=== PATIENT | female | born 1955 | race Caucasian/White ===

== ENCOUNTER 2019-12-28 10:02 | Outpatient (CLI) | payer MEDICARE, OTHER, SELFPAY ==
--- NOTE | 2019-12-28 10:12 | XR_ITS ---
WS: [id number] LEFT HAND: 3 VIEW(S) TECHNIQUE: PA, oblique and lateral. HISTORY: CONTRACTURE OF LEFT HAND COMPARISON: None available. No acute fracture or dislocation. Moderate interphalangeal joint space narrowing. Most significant changes in the third DIP joint. Mode rate osteoarthritis at the first carpometacarpal joint. There are several small rounded loose bodies adjacent to the first carpometacarpal joint. Progression of disease since 09/12/2014. No erosions. XR/XR hand LT min 3V* [id number] IMPRESSION: 1. Mildly severe osteoarthritis at the first carpometacarpal joint with progre ssion since 2014. 2. Mild osteoarthritis at the interphalangeal joints.
--- NOTE | 2019-12-28 10:12 | XR_ITS ---
WS: [id number] RIGHT HAND: 3 VIEW(S) TECHNIQUE: PA, oblique and lateral. HISTORY: OSTEOARTHRITIS COMPARISON: None available. No acute fracture or dislocation. Mild interphalangeal joint space narrowing. No erosions at the metacarpal heads. No soft tissue edema . Mild narrowing of the radiocarpal joint. XR/XR hand RT min 3V* [id number] IMPRESSION: Mild osteoarthritis RIGHT hand.
== END 2019-12-28 10:03 | disposition home or self-care (01) ==
LOC: RADWPI 10:10
PROVIDERS: Family Provider Family Medicine; PCP Family Medicine; Visit Provider Nurse Practitioner
DX: M19.041 Primary osteoarthritis, right hand (principal); M19.042 Primary osteoarthritis, left hand; M24.542 Contracture, left hand
CPT/HCPCS: 73130

== ENCOUNTER → 2020-02-09 09:03 | Outpatient (BNVA) | payer MEDICARE, OTHER, SELFPAY | PROVIDERS: Family Provider Family Medicine; PCP Family Medicine; Visit Provider Internal Medicine | DX: R76.8 Other specified abnormal immunological findings in serum (principal); M19.90 Unspecified osteoarthritis, unspecified site; M79.7 Fibromyalgia; M81.0 Age-related osteoporosis without current pathological fracture | CPT/HCPCS: 36415; 80053; 81003; 82306; 82550; 83735; 84100; 85025; 85651; 86038; 86140; 86160; 86431; 86812; 99203 ==

== ENCOUNTER → 2020-02-13 10:37 | Outpatient (BNVA) | payer MEDICARE, OTHER, SELFPAY | PROVIDERS: Family Provider Family Medicine; PCP Family Medicine; Visit Provider Internal Medicine | DX: R76.8 Other specified abnormal immunological findings in serum (principal); Z79.899 Other long term (current) drug therapy | CPT/HCPCS: 36415; 80053; 82306; 82550; 82553; 83735; 84100; 85025; 85651; 86038; 86140; 86160; 86431; 86812 ==

== ENCOUNTER → 2020-02-20 10:01 | Outpatient (BNVA) | payer MEDICARE, OTHER, SELFPAY | PROVIDERS: Family Provider Family Medicine; PCP Family Medicine; Visit Provider Internal Medicine | DX: R76.8 Other specified abnormal immunological findings in serum (principal); M19.90 Unspecified osteoarthritis, unspecified site; Z79.899 Other long term (current) drug therapy | CPT/HCPCS: 36415; 80048; 81003; 82550; 83516; 84100 ==

== ENCOUNTER → 2020-03-12 13:26 | Outpatient (BNVA) | payer MEDICARE, OTHER, SELFPAY | PROVIDERS: Family Provider Family Medicine; PCP Family Medicine; Visit Provider Internal Medicine | DX: M60.9 Myositis, unspecified (principal); R76.8 Other specified abnormal immunological findings in serum; M19.90 Unspecified osteoarthritis, unspecified site; R53.83 Other fatigue | CPT/HCPCS: 36415; 80053; 81001; 81003; 82550; 84100; 85025; 87077; 87086; 87186; 99214 ==

== ENCOUNTER → 2020-04-24 10:02 | Outpatient (BNVA) | payer MEDICARE, OTHER, SELFPAY | PROVIDERS: Family Provider Family Medicine; PCP Family Medicine; Visit Provider Internal Medicine | DX: M60.9 Myositis, unspecified (principal); R76.8 Other specified abnormal immunological findings in serum; Z79.899 Other long term (current) drug therapy | CPT/HCPCS: 36415; 80053; 81001; 82550; 84100; 85025; 85651; 86140; 87077; 87086; 87186; 99213 ==

== ENCOUNTER → 2020-09-04 08:39 | Outpatient (BNVA) | payer MEDICARE, OTHER, SELFPAY | PROVIDERS: PCP Family Medicine; Visit Provider Internal Medicine Rheumatology | DX: Z79.899 Other long term (current) drug therapy (principal) | CPT/HCPCS: 36415; 80053; 85025; 85651; 86140 ==

== ENCOUNTER → 2020-09-12 09:09 | Outpatient (BNVA) | payer MEDICARE, OTHER, SELFPAY | PROVIDERS: PCP Nurse Practitioner Family; Visit Provider Internal Medicine | DX: R76.8 Other specified abnormal immunological findings in serum (principal); M19.90 Unspecified osteoarthritis, unspecified site; M79.10 Myalgia, unspecified site; Z79.899 Other long term (current) drug therapy | CPT/HCPCS: 99214 ==

== ENCOUNTER → 2020-10-21 11:28 | Outpatient (BNVA) | payer MEDICARE, OTHER, SELFPAY | PROVIDERS: PCP Nurse Practitioner Family; Visit Provider Internal Medicine | DX: R76.8 Other specified abnormal immunological findings in serum (principal); M79.10 Myalgia, unspecified site; M19.90 Unspecified osteoarthritis, unspecified site; M70.60 Trochanteric bursitis, unspecified hip; Y93.9 Activity, unspecified | CPT/HCPCS: 80053; 81003; 82550; 84100; 85025; 99214 ==

== ENCOUNTER → 2020-11-27 10:02 | Outpatient (BNVA) | payer MEDICARE, OTHER, SELFPAY | PROVIDERS: PCP Nurse Practitioner Family; Visit Provider Surgery | DX: Z20.822 Contact with and (suspected) exposure to COVID-19 (principal); M79.10 Myalgia, unspecified site | CPT/HCPCS: 87635 ==

== ENCOUNTER 2020-12-02 06:05 | Day surgery (SDC) | payer MEDICARE, OTHER, SELFPAY ==
[2020-11-29 14:08] VITALS: BMI 36.8
[2020-12-02 06:24] VITALS: BP 135/87; PULSE 75; RESP 18; TEMP 36.6; O2SAT 97
[2020-12-02] MEDS: sodium chloride 0.9% 1,000 ML 30 ML IV (07:00)
--- NOTE | 2020-12-02 07:03 | W.PM.OPSFHP ---
Same Day Surgery H&P Indication for Procedure/HPI DATE OF PROCEDURE: December 02, 2020 CHIEF COMPLAINT/INDICATIONFOR SURGICAL PROCEDURE: Right thigh muscle biopsy/colonoscopy PREOP DIAGNOSIS: Myositis, screening colonoscopy PLANNED PROCEDRUE: Operation Date: 12/02/20 07:50 Proposed Procedures p Muscle Biopsy M79.10(Not Applicable) - Reilly Hernandez MD s Colonoscopy 02133 Z12.11(Not Applicable) - Reilly Hernandez MD Medications/Allergies* Home Medications Medication Instructions Recorded Confirmed Type azelastine 137 mcg (0.1 %) nasal 1 spray INTRANASAL BID 02/08/20 12/02/20 History spray aerosol fluticasone 250 mcg-salmeterol 50 1 inh INHALATION BID 02/08/20 12/02/20 History mcg/dose blistr powdr for inhalation lorazepam 0.5 mg tablet 0.5 mg PO DAILY PRN 02/08/20 12/02/20 History pregabalin 300 mg capsule 300 mg PO DAILY 02/08/20 12/02/20 History trazodone 150 mg tablet 150 mg PO DAILY 02/08/20 12/02/20 History atenolol 25 mg tablet 25 mg PO DAILY 02/09/20 12/02/20 History aspirin 81 mg chewable tablet 81 mg PO DAILY 09/12/20 12/02/20 History levocetirizine 5 mg tablet 5 mg PO DAILY 09/12/20 11/29/20 History loratadine [Claritin] 10 mg PO DAILY PRN 12/02/20 12/02/20 History Allergies/Adverse Reactions Allergy/AdvReac Type Severity Reaction Status Date / Time adhesive tape Allergy itching Verified 11/29/20 14:07 Pertinent History/Comorbid Conditions* Medical History (Updated 09/12/20 @ 09:46 by Sue Blake MD) Anxiety Fibromyalgia Hypertension Myositis Osteoarthritis Osteoporosis Surgical History (Updated 05/17/20 @ 09:34 by Reilly Hernandez MD) H/O total hip arthroplasty Family History (Updated 02/09/20 @ 09:34 by Dorothy Washington LPN) Hypertension Denies family history of Rheumatoid arthritis Lupus CAD (coronary artery disease) Cancer Social History Smoking and tobacco status: never smoked Alcohol intake: never Lives independently: Yes Marital status: Current occupational status: retired History of recent travel: No Pertinent Exam Findings alert, oriented x 3, regular rate & rhythm and operative site marked Recommendations Surgery/Procedure today Coding Level of Care Code Acute Notch Grinder for Sarita Anguiano
--- NOTE | 2020-12-02 07:15 | ANES.PREANE2 ---
Pre-Anesthetic Assessment Pre-Anesthetic Assessment: Height/Weight: Height 1.7 m Weight 106.594 kg Temp Pulse Resp BP Pulse Ox 98 F 75 18 135/87 97 12/02/20 06:24 12/02/20 06:24 12/02/20 06:24 12/02/20 06:24 12/02/20 06:24 Preop Diagnosis: Myositis, screening colonoscopy Proposed Procedure: Operation Date: 12/02/20 07:50 Proposed Procedures p Muscle Biopsy M79.10(Not Applicable) - Reilly Hernandez MD s Colonoscopy 94697 Z12.11(Not Applicable) - Reilly Hernandez MD Was Beta Jessie taken within 24 hours: Yes Was Clonidine taken within 24 hours: N/A Last intake: Intake Last Liquid Date 12/01/20 Last Solid Date 12/01/20 Social: Social History: No alcohol and No tobacco Exam: Pre-Anes Outpt Exam: alert, oriented x 3, clear to auscultation bilaterally and regular rate & rhythm Airway: Submandibular: WNL Cervical ROM: WNL MP: 2 Pulmonary: Pulmonary: None reported CV/HEM: CV/HEM: HTN : : None reported Hepatic: Hepatic: None reported GI: GI: None reported Metabolic: Metabolic: None reported Musc/skel: Musc/skel: None reported Neuropsych: Neuropsych: Anxiety and Depression Anesthetic Plan: ASA status: 2 Anesthesia: MAC PFSH Anesthesia PFSH: Medical History Anxiety Fibromyalgia Hypertension Myositis Osteoarthritis Osteoporosis Surgical History H/O total hip arthroplasty Family History Other Hypertension Denies family history of Rheumatoid arthritis Lupus CAD (coronary artery disease) Cancer Social History Smoking and tobacco status: never smoked Alcohol intake: never Lives independently: Yes Marital status: Current occupational status: retired History of recent travel: No Data Anesthesia Cardiac Studies: No Data to Display
[2020-12-02 09:34] VITALS: BP 98/69; PULSE 73; RESP 12; TEMP 36.2; O2SAT 94
[2020-12-02] MEDS: ondansetron 2 mg/ML SDV 2 mL 4 MG IVP ×2 (09:36→09:41)
--- NOTE | 2020-12-02 09:39 | P.PCN_ITS ---
PACU note PACU note: VSS, Good respiratory effort, report to DEBURR TECHNICIAN Post-Anesthesia Exam: awake
--- NOTE | 2020-12-02 09:39 | PM.PACU ---
PACU note PACU note: VSS, Good respiratory effort, report to RECREATION FACILITY ATTENDANT Post-Anesthesia Exam: awake
[2020-12-02 09:40] VITALS: BP 103/73; PULSE 69; RESP 14; O2SAT 94
--- NOTE | 2020-12-02 09:40 | ANE.PACU2 ---
Inpatient post-anesthesia follow up: Airway intact: Yes Vital signs: Temperature 98 F Pulse Rate 75 Respiratory Rate 18 Blood Pressure 135/87 Pulse Oximetry 97 Oxygen Delivery Me thod Room Air Oxygen Flow Rate Fraction of Inspir ed Oxygen Hydration adequate: Yes Nausea and vomiting: No Pain level: 1 Mental status: Baseline
[2020-12-02 09:45] VITALS: BP 103/75; PULSE 77; RESP 16; TEMP 36.4; O2SAT 95
[2020-12-02 09:48] VITALS: BP 99/71; PULSE 65; RESP 16; TEMP 36.1; O2SAT 94
[2020-12-02] MEDS: HYDROcodone-acetaminophen 5-325 mg Tablet 1 TAB PO (10:24)
[2020-12-02 10:26] VITALS: BP 100/68; PULSE 55; RESP 16; O2SAT 95
--- NOTE | 2020-12-02 14:08 | PM.OP ---
Operative Report Date of procedure: December 02, 2020 Pre-op Diagnosis: Myositis, screening colonoscopy Post-op Diagnosis: 1. 3mm sessile cecal polyp 2. 3mm sessile descending colon polyp 3. Diverticulosis 4. Myositis Procedure Done: 1. Colonoscopy with polypectomy using cold biopsy forceps 2. Right rectus femoris muscle biopsy Specimens removed/disposition: 1. Recovery over the weekend right thigh rectus femoris - muscle biopsy 2. Cecal polyp 3. Descending colon polyp Surgeon: Reilly Hernandez Anesthesia: General Condition: stable Disposition: PACU Procedure: The patient is in the operating room and placed in the left lateral position under MAC after IV antibiotic had been administered. A colonoscopy was introduced and advanced to the cecum and slowly withdrawn. The colon prep was fair. Cecum: 3 mm sessile polyp removed with cold biopsy forceps Ascending colon: Normal Transverse colon: Normal Descending colon: 5 mm sessile polyp removed with cold biopsy forceps Sigmoid colon: Mild sigmoid diverticulosis Rectum:: Normal KEI:: Normal The right thigh was prepped and draped in a sterile manner. 1% lidocaine with 0.5% Marcaine was infiltrated into the skin and subcutaneous tissue. Using a 15 blade 3 cm incision was made, subcutaneous tissue was divided with electrocautery, the muscular fascia was divided and the rectus femoris muscle was identified. Using Metzenbaum scissors, 3 segments of 2 x 1 cm segment was excised and sent to pathology. Wound was irrigated with saline, hemostasis ensured and muscular fascia was closed using [id number] 0 Vicryl suture and subcutaneous tissue approximated using 3-0 Vicryl suture and skin was closed with running subcuticular 4-0 Monocryl suture and surgical glue. The patient was transferred to recovery room in stable condition.
== END 2020-12-02 10:54 | disposition home or self-care (01) ==
PROVIDERS: PCP Nurse Practitioner Family; Visit Provider Surgery
PROC: (CPT 20205; principal; 2020-12-02 07:50)
PROC: 0DJD8ZZ Inspection of Lower Intestinal Tract, Via Natural or Artificial Opening Endoscopic (ICD-10-PCS; CPT 45378; 2020-12-02 07:50)
DX: Z12.11 Encounter for screening for malignant neoplasm of colon (principal); M60.9 Myositis, unspecified; D12.0 Benign neoplasm of cecum; D12.4 Benign neoplasm of descending colon; K57.30 Diverticulosis of large intestine without perforation or abscess without bleeding; I10 Essential (primary) hypertension; M19.90 Unspecified osteoarthritis, unspecified site; M81.0 Age-related osteoporosis without current pathological fracture; Z82.49 Family history of ischemic heart disease and other diseases of the circulatory system; M79.7 Fibromyalgia
CPT/HCPCS: 20205; 45380; 88300; 88305; J0690; J2405; J2704; J3010; J3490; J7030

== ENCOUNTER 2020-12-17 13:19 | Outpatient (CLI) | payer MEDICARE, OTHER, SELFPAY ==
--- NOTE | 2020-12-17 13:22 | USCV_ITS ---
Jesu Janey Age: 65 Gender: F : 1955 Exam Date: 12/17/2020 14:21 Ordering Phys: Amna Weaver NP Technologist: Kenyatta Boykin [place] [facility] [place]ication: ESSENTIAL HTN BP: 140 / 90 HR: 61 Rhythm: Sinus Technical Quality: Adequate MEASUREMENTS (Male / Female) Normal Values 2D ECHO LV Diastolic Diameter PLAX 4.4 cm 4.2 - 5.9 / 3.9 - 5.3 cm LV Systolic Diameter PLAX 3.2 cm LV Chamber Size 4.2 cm IVS Diastolic Thickness 1.3 cm 0.6 - 1.0 / 0.6 - 0.9 cm IVS Systolic Thickness 1.3 cm LVPW Diastolic Thickness 1.1 cm 0.6 - 1.0 / 0.6 - 0.9 cm LVPW Systolic Thickness 1.7 cm RV Chamber Size 2.7 cm LVOT Diameter 2.2 cm LV Ejection Fraction 2D Teich 53.2 % LV Ejection Fraction MOD 2C 56.7 % LV Ejection Fraction 2C AL 57.4 % LA Diameter 2.8 cm LA Width 2.0 cm LA Height 3.6 cm RA Width 3.1 cm RA Height 4.3 cm Aorta at Sinotubular Diameter 3.1 cm M-MODE LV Diastolic Diameter MM 4.7 cm 4.2 - 5.9 / 3.9 - 5.3 cm LV Systolic Diameter MM 3.0 cm LV Ejection Fraction MM Teich 66.2 % IVS Diastolic Thickness MM 0.9 cm 0.6 - 1.0 / 0.6 - 0.9 cm IVS Systolic Thickness MM 2.1 cm LVPW Diastolic Thickness MM 1.7 cm 0.6 - 1.0 / 0.6 - 0.9 cm LVPW Systolic Thickness MM 1.7 cm Aortic Annulus Diameter 3.3 cm LA Ao Ratio MM 0.9 MV E Point Septal Separation 0.6 cm DOPPLER AV Peak Velocity 117.0 cm/s LVOT Peak Velocity 75.0 cm/s AV Area Cont Eq vti 2.5 cm squared AV Area Cont Eq pk 2.4 cm squared MV Area PHT 4.1 cm squared Mitral E to A Ratio 1.1 MV E' Velocity 38.0 cm/s Mitral E to MV E' Ratio 7.7 Mitral E to LV E' Lateral Ratio 7.2 Mitral E to LV E' Septal Ratio 8.2 TR Peak Velocity 230.2 cm/s TR Peak Gradient 21.2 mmHg TR Mean Velocity 177.3 cm/s TR Mean Gradient 13.6 mmHg TR Velocity Time Integral 64.5 cm TV Peak E Velocity 64.0 cm/s Right Atrial Pressure 3.0 mmHg Pulmonary Artery Systolic Pressu 24.2 mmHg PV Peak Velocity 54.0 cm/s RV Acceleration Time 0.1 s RV Ejection Time 0.4 s RV AcT/ET 0.3 FINDINGS Left Ventricle Normal left ventricular size. LV systolic function is normal with EF of 50-55%. No regional wall motion abnormalities. Normal diastolic filling pattern. Right Ventricle The right ventricle is normal in size and function. Right Atrium The right atrium is normal in size. Left Atrium The left atrium is normal in size. Mitral Valve Structurally normal mitral valve without significant stenosis or prolapse. There is mild mitral regurgitation. Aortic Valve Structurally normal aortic valve without significant sclerosis or stenosis. There is no aortic regurgitation. Tricuspid Valve Structurally normal tricuspid valve without significant stenosis. Trace tricuspid regurgitation. RVSP is 10-15mmHg Pulmonic Valve Structurally normal pulmonic valve without significant stenosis. There is no pulmonic regurgitation. Pericardium Normal pericardium without effusion. Aorta Normal ascending aorta dimension. CONCLUSIONS LV systolic function is normal with EF of 50-55% Diastolic function is normal Mild mitral regurgitation. Trace tricuspid regurgitation No comparison studies are available Ken Meade MD (Electronically Signed) Final Date: 26 Dec 2020 10:19 S
== END 2020-12-17 13:20 | disposition home or self-care (01) ==
LOC: RAD 13:21
PROVIDERS: PCP Nurse Practitioner Family; Visit Provider Nurse Practitioner Family
DX: Z01.818 Encounter for other preprocedural examination (principal); I10 Essential (primary) hypertension; I34.0 Nonrheumatic mitral (valve) insufficiency; I07.1 Rheumatic tricuspid insufficiency
CPT/HCPCS: 93306

== ENCOUNTER → 2021-01-09 10:48 | Outpatient (BNVA) | payer MEDICARE, OTHER, SELFPAY | PROVIDERS: PCP Nurse Practitioner Family; Visit Provider Internal Medicine | DX: M60.9 Myositis, unspecified (principal); M19.90 Unspecified osteoarthritis, unspecified site; Z11.59 Encounter for screening for other viral diseases; Z11.1 Encounter for screening for respiratory tuberculosis | CPT/HCPCS: 36415; 86704; 87340; 99214 ==

== ENCOUNTER → 2021-04-10 08:32 | Outpatient (BNVA) | payer MEDICARE, OTHER, SELFPAY | PROVIDERS: PCP Nurse Practitioner Family; Visit Provider Internal Medicine | DX: M60.9 Myositis, unspecified (principal); R76.8 Other specified abnormal immunological findings in serum; Z79.899 Other long term (current) drug therapy; M19.90 Unspecified osteoarthritis, unspecified site; Z11.59 Encounter for screening for other viral diseases; Z11.1 Encounter for screening for respiratory tuberculosis | CPT/HCPCS: 36415; 80053; 82657; 84100; 85025; 85651; 86140; 86480; 86803; 99214 ==

== ENCOUNTER → 2021-06-17 11:01 | Outpatient (BNVA) | payer MEDICARE, OTHER, SELFPAY | PROVIDERS: PCP Nurse Practitioner Family; Visit Provider Internal Medicine | DX: M60.9 Myositis, unspecified (principal); Z79.899 Other long term (current) drug therapy; M81.0 Age-related osteoporosis without current pathological fracture; M19.90 Unspecified osteoarthritis, unspecified site; R76.8 Other specified abnormal immunological findings in serum; M79.7 Fibromyalgia | CPT/HCPCS: 36415; 80053; 82550; 85025; 85651; 86140 ==

== ENCOUNTER → 2021-06-18 16:47 | Outpatient (BNVA) | payer MEDICARE, OTHER, SELFPAY | PROVIDERS: PCP Nurse Practitioner Family; Visit Provider Internal Medicine | DX: M60.9 Myositis, unspecified (principal); Z79.899 Other long term (current) drug therapy; M81.0 Age-related osteoporosis without current pathological fracture; R76.8 Other specified abnormal immunological findings in serum; M19.90 Unspecified osteoarthritis, unspecified site; M79.10 Myalgia, unspecified site; M79.7 Fibromyalgia | CPT/HCPCS: 80053; 82550; 82553; 85025; 85651; 86140 ==

== ENCOUNTER → 2021-09-03 09:43 | Outpatient (BNVA) | payer MEDICARE, OTHER, SELFPAY | PROVIDERS: PCP Nurse Practitioner Family; Visit Provider Internal Medicine | DX: R76.8 Other specified abnormal immunological findings in serum (principal); M60.9 Myositis, unspecified; Z79.899 Other long term (current) drug therapy | CPT/HCPCS: 99214 ==

== ENCOUNTER 2021-09-04 09:09 | Outpatient (CLI) | payer MEDICARE, OTHER, SELFPAY ==
[2021-09-04 09:44] LABS: Basophils % 0.5 %; Eosinophils # 0.2 10^3/uL (0.0-0.8); Eosinophils % 4.5 %; Hematocrit 38.1 % (37.0-47.0); Hemoglobin 12.5 g/dL (11.5-15.3); Lymphocytes # 1.6 10^3/uL (0.8-4.8); Lymphocytes % 35.6 %; Mean Corpuscular HGB Conc 32.8 g/dL (30.0-36.0); Mean Corpuscular Hemoglobin 28.6 pg (28.0-34.0); Mean Corpuscular Volume 87.2 fl (81-99); Mean Platelet Volume 10.5 fL (7.4-10.4); Monocytes # 0.3 10^3/uL (0.2-0.9); Monocytes % 7.7 %; Neutrophils # 2.29 10^3/uL (1.8-7.7); Neutrophils % 51.5 %; Nucleated Red Blood Cells % 0 %; Platelet Count 185 10^3/cmm (130-400); Red Blood Count 4.37 10^6/uL (4.1-5.3); Red Cell Distribution Width 14.5 % (12.1-15.1); White Blood Count 4.4 10^3/uL (4.0-10.0)
[2021-09-04 09:56] LABS: Erythrocyte Sedimentation Rate 5 mm/hr (0-15)
[2021-09-04 10:09] LABS: Alanine Aminotransferase 15 U/L (0-33); Albumin Level 4.1 g/dL (3.5-5.2); Alkaline Phosphatase 84 IU/L (35-105); Anion Gap 18.7 (5-19); Aspartate Amino Transferase 26 U/L (0-32); Blood Urea Nitrogen 16 mg/dL (8-23); Calcium 8.6 mg/dL (8.5-10.5); Carbon Dioxide 23 mmol/L (22-29); Chloride 99 mmol/L (98-107); Creatine Phosphokinase 294 U/L (26-192); Globulin 2.1 g/dL (1.3-4.6); Glomerular Filtration Rate 62.3 mL/min (90-130); Glucose 80 mg/dL (65-115); Osmolality Calculated 282 mOsm/kg (285-295); Potassium 4.7 mmol/L (3.5-5.1); Sodium 136 mmol/L (136-145); Total Bilirubin 0.5 mg/dL (0.15-1.2); Total Protein 6.2 g/dL (6.6-8.7)
[2021-09-04 11:02] LABS: CKMB 4.9 ng/mL (0-5.34)
== END 2021-09-04 09:10 | disposition home or self-care (01) ==
LOC: LAB 09:14
PROVIDERS: PCP Nurse Practitioner Family; Visit Provider Internal Medicine
DX: M60.9 Myositis, unspecified (principal); R76.8 Other specified abnormal immunological findings in serum
CPT/HCPCS: 36415; 80053; 82550; 82553; 82657; 85025; 85651; 86140

== ENCOUNTER → 2021-10-01 09:25 | Outpatient (BNVA) | payer MEDICARE, OTHER, SELFPAY | PROVIDERS: PCP Nurse Practitioner Family; Visit Provider Internal Medicine | DX: M60.9 Myositis, unspecified (principal); R76.8 Other specified abnormal immunological findings in serum; M19.90 Unspecified osteoarthritis, unspecified site | CPT/HCPCS: 99214 ==

== ENCOUNTER 2022-01-01 08:31 | Outpatient (CLI) | payer MEDICARE, OTHER, SELFPAY ==
[2022-01-01 09:24] LABS: Basophils % 0.7 %; Eosinophils % 0.2 %; Hematocrit 39.3 % (37.0-47.0); Lymphocytes # 1.2 10^3/uL (0.8-4.8); Lymphocytes % 28.3 %; Mean Corpuscular HGB Conc 33.1 g/dL (30.0-36.0); Mean Corpuscular Hemoglobin 28.8 pg (28.0-34.0); Mean Corpuscular Volume 86.9 fl (81-99); Monocytes # 0.4 10^3/uL (0.2-0.9); Monocytes % 8.4 %; Neutrophils # 2.66 10^3/uL (1.8-7.7); Neutrophils % 62.2 %; Nucleated Red Blood Cells % 0 %; Platelet Count 225 10^3/cmm (130-400); Red Blood Count 4.52 10^6/uL (4.1-5.3); Red Cell Distribution Width 14.5 % (12.1-15.1); White Blood Count 4.3 10^3/uL (4.0-10.0)
[2022-01-01 09:38] LABS: Alanine Aminotransferase 31 U/L (0-33); Albumin Level 4.4 g/dL (3.5-5.2); Alkaline Phosphatase 78 IU/L (35-105); Aspartate Amino Transferase 42 U/L (0-32); Blood Urea Nitrogen 22 mg/dL (8-23); Calcium 9.4 mg/dL (8.5-10.5); Carbon Dioxide 26 mmol/L (22-29); Chloride 91 mmol/L (98-107); Globulin 2.5 g/dL (1.3-4.6); Glomerular Filtration Rate 62.3 mL/min (90-130); Glucose 95 mg/dL (65-115); Osmolality Calculated 265 mOsm/kg (285-295); Sodium 126 mmol/L (136-145); Total Bilirubin 0.4 mg/dL (0.15-1.2); Total Protein 6.9 g/dL (6.6-8.7)
[2022-01-01 09:39] LABS: Anion Gap 13.8 (5-19); Potassium 4.8 mmol/L (3.5-5.1)
[2022-01-01 09:40] LABS: Creatine Phosphokinase 294 U/L (26-192)
[2022-01-01 09:52] LABS: Erythrocyte Sedimentation Rate 7 mm/hr (0-15)
== END 2022-01-01 08:32 | disposition home or self-care (01) ==
LOC: LAB 08:35
PROVIDERS: PCP Nurse Practitioner Family; Visit Provider Internal Medicine
DX: M60.9 Myositis, unspecified; M19.90 Unspecified osteoarthritis, unspecified site; R76.8 Other specified abnormal immunological findings in serum; Z79.899 Other long term (current) drug therapy
CPT/HCPCS: 80053; 82550; 85025; 85651; 86140; 99214

== ENCOUNTER 2022-04-03 09:45 | Outpatient (CLI) | payer MEDICARE, OTHER, SELFPAY ==
[2022-04-03 10:51] LABS: Basophils % 0.7 %; Eosinophils # 0.1 10^3/uL (0.0-0.8); Eosinophils % 2.5 %; Hematocrit 38.7 % (37.0-47.0); Hemoglobin 12.8 g/dL (11.5-15.3); Lymphocytes # 1.7 10^3/uL (0.8-4.8); Lymphocytes % 29.7 %; Mean Corpuscular HGB Conc 33.1 g/dL (30.0-36.0); Mean Corpuscular Hemoglobin 29.7 pg (28.0-34.0); Mean Corpuscular Volume 89.8 fl (81-99); Mean Platelet Volume 10.3 fL (7.4-10.4); Monocytes # 0.5 10^3/uL (0.2-0.9); Monocytes % 8.8 %; Neutrophils # 3.22 10^3/uL (1.8-7.7); Neutrophils % 57.8 %; Nucleated Red Blood Cells % 0 %; Platelet Count 205 10^3/cmm (130-400); Red Blood Count 4.31 10^6/uL (4.1-5.3); Red Cell Distribution Width 14.5 % (12.1-15.1); White Blood Count 5.6 10^3/uL (4.0-10.0)
[2022-04-03 10:52] LABS: Erythrocyte Sedimentation Rate 6 mm/hr (0-15)
[2022-04-03 11:19] LABS: Alanine Aminotransferase 24 U/L (0-33); Albumin Level 4.3 g/dL (3.5-5.2); Alkaline Phosphatase 74 IU/L (35-105); Anion Gap 13.6 (5-19); Aspartate Amino Transferase 32 U/L (0-32); Blood Urea Nitrogen 23 mg/dL (8-23); Calcium 9.3 mg/dL (8.5-10.5); Carbon Dioxide 27 mmol/L (22-29); Chloride 95 mmol/L (98-107); Creatine Phosphokinase 229 U/L (26-192); Globulin 2.2 g/dL (1.3-4.6); Glomerular Filtration Rate 71.1 mL/min (90-130); Glucose 83 mg/dL (65-115); Osmolality Calculated 275 mOsm/kg (285-295); Potassium 4.6 mmol/L (3.5-5.1); Sodium 131 mmol/L (136-145); Total Bilirubin 0.4 mg/dL (0.15-1.2); Total Protein 6.5 g/dL (6.6-8.7)
== END 2022-04-03 09:46 | disposition home or self-care (01) ==
LOC: LAB 09:48
PROVIDERS: PCP Nurse Practitioner Family; Visit Provider Internal Medicine
DX: M60.9 Myositis, unspecified (principal); R76.8 Other specified abnormal immunological findings in serum; M19.90 Unspecified osteoarthritis, unspecified site; Z79.899 Other long term (current) drug therapy
CPT/HCPCS: 36415; 80053; 82550; 85025; 85651; 86140; 99213; 99214

== ENCOUNTER 2022-12-01 09:27 | Outpatient (CLI) | payer MEDICARE, OTHER, SELFPAY ==
[2022-12-01 10:23] LABS: Basophils % 0.6 %; Eosinophils # 0.2 10^3/uL (0.0-0.8); Eosinophils % 3.7 %; Hematocrit 37.8 % (37.0-47.0); Hemoglobin 11.9 g/dL (11.5-15.3); Lymphocytes # 1.8 10^3/uL (0.8-4.8); Lymphocytes % 27.5 %; Mean Corpuscular HGB Conc 31.5 g/dL (30.0-36.0); Mean Corpuscular Hemoglobin 27.9 pg (28.0-34.0); Mean Corpuscular Volume 88.7 fl (81-99); Mean Platelet Volume 10.2 fL (7.4-10.4); Monocytes # 0.4 10^3/uL (0.2-0.9); Monocytes % 6.6 %; Neutrophils # 3.98 10^3/uL (1.8-7.7); Neutrophils % 61.1 %; Nucleated Red Blood Cells % 0 %; Platelet Count 195 10^3/cmm (130-400); Red Blood Count 4.26 10^6/uL (4.1-5.3); Red Cell Distribution Width 13.7 % (12.1-15.1); White Blood Count 6.5 10^3/uL (4.0-10.0)
[2022-12-01 10:49] LABS: Alanine Aminotransferase 33 U/L (0-33); Alkaline Phosphatase 92 U/L (35-105); Anion Gap 12.8 (5-19); Aspartate Amino Transferase 40 U/L (0-32); Blood Urea Nitrogen 18 mg/dL (8-23); Calcium 8.6 mg/dL (8.5-10.5); Carbon Dioxide 28 mmol/L (22-29); Chloride 104 mmol/L (98-107); Globulin 2.3 g/dL (1.3-4.6); Glomerular Filtration Rate 71.1 mL/min (90-130); Glucose 89 mg/dL (65-115); Osmolality Calculated 291 mOsm/kg (285-295); Potassium 4.8 mmol/L (3.5-5.1); Sodium 140 mmol/L (136-145); Total Bilirubin 0.3 mg/dL (0.15-1.2); Total Protein 6.3 g/dL (6.6-8.7)
[2022-12-01 14:26] LABS: Erythrocyte Sedimentation Rate 6 mm/hr (0-15)
== END 2022-12-01 09:28 | disposition home or self-care (01) ==
LOC: LAB 09:34
PROVIDERS: PCP Nurse Practitioner Family; Visit Provider Internal Medicine
DX: M19.90 Unspecified osteoarthritis, unspecified site (principal); R76.8 Other specified abnormal immunological findings in serum
CPT/HCPCS: 36415; 80053; 85025; 85651; 86140

== ENCOUNTER → 2022-12-03 14:53 | Outpatient (BNVA) | payer MEDICARE, OTHER, SELFPAY | PROVIDERS: PCP Nurse Practitioner Family; Visit Provider Internal Medicine | DX: M60.9 Myositis, unspecified (principal); M19.90 Unspecified osteoarthritis, unspecified site; R76.8 Other specified abnormal immunological findings in serum | CPT/HCPCS: 99214 ==

== ENCOUNTER 2023-04-09 08:26 | Outpatient (CLI) | payer MEDICARE, OTHER, SELFPAY ==
[2023-04-09 09:20] LABS: Creatine Phosphokinase 261 U/L (26-192)
== END 2023-04-09 08:27 | disposition home or self-care (01) ==
PROVIDERS: PCP Nurse Practitioner Family; Visit Provider Internal Medicine
DX: M60.9 Myositis, unspecified (principal); M19.90 Unspecified osteoarthritis, unspecified site; R76.8 Other specified abnormal immunological findings in serum; R21 Rash and other nonspecific skin eruption
CPT/HCPCS: 36415; 82550; 99214

== ENCOUNTER 2023-07-13 13:15 | Outpatient (CLI) | payer MEDICARE, OTHER, SELFPAY ==
[2023-07-13 13:45] LABS: Basophils % 0.7 %; Eosinophils # 0.3 10^3/uL (0.0-0.8); Eosinophils % 4.7 %; Lymphocytes # 2.1 10^3/uL (0.8-4.8); Lymphocytes % 35.8 %; Mean Corpuscular HGB Conc 32.3 g/dL (30-55); Mean Corpuscular Hemoglobin 29.9 pg (27-33); Mean Corpuscular Volume 92.4 fl (85-98); Mean Platelet Volume 10.4 fL (7.4-10.4); Monocytes # 0.4 10^3/uL (0.2-0.9); Monocytes % 6.7 %; Neutrophils # 3.09 10^3/uL (1.8-7.7); Neutrophils % 51.9 %; Nucleated Red Blood Cells % 0 %; Platelet Count 183 10^3/cmm (157-399); Red Blood Count 4.22 10^6/uL (3.85-5.65); Red Cell Distribution Width 14.1 % (12.1-15.1); White Blood Count 5.95 10^3/uL (3.29-11.43)
[2023-07-13 14:20] LABS: Alanine Aminotransferase 30 U/L (0-33); Albumin Level 4.4 g/dL (3.5-5.2); Alkaline Phosphatase 89 U/L (35-105); Anion Gap 14.4 (5-19); Aspartate Amino Transferase 36 U/L (0-32); Blood Urea Nitrogen 14 mg/dL (8-23); Calcium 9.4 mg/dL (8.5-10.5); Carbon Dioxide 28 mmol/L (22-29); Chloride 103 mmol/L (98-107); Creatine Phosphokinase 296 U/L (26-192); Free T4 Free Thyroxine 1.15 ng/dL (0.82-1.77); Globulin 2.3 g/dL (1.3-4.6); Glomerular Filtration Rate 54.8 mL/min (90-130); Glucose 92 mg/dL (65-115); Osmolality Calculated 292 mOsm/kg (285-295); Phosphorus 3.2 mg/dL (2.5-4.5); Potassium 4.4 mmol/L (3.5-5.1); Sodium 141 mmol/L (136-145); Thyroid Stimulating Hormone 2.28 uIU/mL (0.27-4.20); Total Bilirubin 0.4 mg/dL (0.15-1.2); Total Protein 6.7 g/dL (6.6-8.7)
== END 2023-07-13 13:16 | disposition home or self-care (01) ==
PROVIDERS: PCP Nurse Practitioner Family; Visit Provider Internal Medicine
DX: M60.9 Myositis, unspecified (principal)
CPT/HCPCS: 36415; 80053; 82550; 84100; 84439; 84443; 85025

== ENCOUNTER → 2023-08-04 13:10 | Outpatient (BNVA) | payer MEDICARE, OTHER, SELFPAY | PROVIDERS: PCP Nurse Practitioner Family; Visit Provider Internal Medicine | DX: M60.9 Myositis, unspecified (principal); R76.8 Other specified abnormal immunological findings in serum; M19.90 Unspecified osteoarthritis, unspecified site; R21 Rash and other nonspecific skin eruption | CPT/HCPCS: 99214 ==

== ENCOUNTER 2023-08-19 08:33 | Outpatient (CLI) | payer MEDICARE, OTHER, SELFPAY ==
--- NOTE | 2023-08-19 08:46 | XRR_ITS ---
PROCEDURE INFORMATION: Exam: XR Chest Exam date and time: 08/19/2023 8:48 AM Age: 68 years old Clinical indication: Other: Low back pain; Prior surgery; Surgery date: 6+ months; Surgery type: L spine; Patient HX: Chronic lower back pain, chest pain for 3 months; Additional info: Z79.899 - other terminal gauger (current) drug therapy TECHNIQUE: Imaging protocol: Radiologic exam of the chest. Views: 2 views. COMPARISON: No relevant prior studies available. FINDINGS: Lungs: Mild bibasilar linear atelectasis versus scarring. No consolidation. Pleural spaces: No pleural effusion or pneumothorax. Heart/Mediastinum: Unremarkable. No cardiomegaly. Bones/joints: Mild degenerative changes along the spine. Partially visualized lumbar spine hardware. Soft tissues: Peripherally calcified bilateral breast implants. XR/XR chest 2V* [id number] IMPRESSION: No acute findings.
--- NOTE | 2023-08-19 08:46 | XRR_ITS ---
PROCEDURE INFORMATION: Exam: XR Lumbosacral Spine Exam date and time: 08/19/2023 8:48 AM Age: 68 years old Clinical indication: Low back pain; Prior surgery; Surgery date: 6+ months; Surgery type: L spine; Patient HX: Chronic lower back pain, chest pain for 3 months; Additional info: M60.9 - myositis, unspecified TECHNIQUE: Imaging protocol: Radiologic exam of the lumbosacral spine. Views: 2 or 3 views. COMPARISON: CR XR hip LT 2-3V wo/w pel* [id number] 07/08/2019 8:33 AM FINDINGS: Bones/joints: No acute fracture. Intact posterior L3-L4 fusion hardware without perihardware lucency or fracture. [id number] lumbar spine levoconvex curvature. Overall straightening of the natural lumbar lordosis. 5 mm grade 1 anterolisthesis of L4 on L5 is likely degenerative. Moderate intervertebral disc space narrowing and osteophytosis of the [place] intervertebral disc spaces. Mild degenerative changes of the imaged lower thoracic spine. Partially visualized left hip arthroplasty. Soft tissues: Unremarkable. XR/XR lumbar spine 2-3V* [id number] IMPRESSION: Moderate multilevel lumbar spine degenerative changes in the setting of levoconvex curvature and posterior L3-L4 fusion without evidence of hardware complication or acute bony abnormality.
[2023-08-19 09:23] LABS: Basophils % 0.2 %; Eosinophils % 0.3 %; Hematocrit 41.2 % (36-47); Lymphocytes # 1.1 10^3/uL (0.8-4.8); Lymphocytes % 19.4 %; Mean Corpuscular HGB Conc 31.6 g/dL (30-55); Mean Corpuscular Hemoglobin 29.2 pg (27-33); Mean Corpuscular Volume 92.6 fl (85-98); Mean Platelet Volume 9.8 fL (7.4-10.4); Monocytes # 0.2 10^3/uL (0.2-0.9); Monocytes % 3.8 %; Neutrophils # 4.36 10^3/uL (1.8-7.7); Neutrophils % 75.6 %; Nucleated Red Blood Cells % 0 %; Platelet Count 209 10^3/cmm (157-399); Red Blood Count 4.45 10^6/uL (3.85-5.65); Red Cell Distribution Width 13.5 % (12.1-15.1); White Blood Count 5.77 10^3/uL (3.29-11.43)
[2023-08-19 09:47] LABS: Alanine Aminotransferase 24 U/L (0-33); Albumin Level 4.4 g/dL (3.5-5.2); Alkaline Phosphatase 77 U/L (35-105); Anion Gap 13.1 (5-19); Aspartate Amino Transferase 20 U/L (0-32); Blood Urea Nitrogen 16 mg/dL (8-23); Calcium 9.3 mg/dL (8.5-10.5); Carbon Dioxide 29 mmol/L (22-29); Chloride 100 mmol/L (98-107); Creatine Phosphokinase 86 U/L (26-192); Globulin 2.2 g/dL (1.3-4.6); Glomerular Filtration Rate 61.9 mL/min (90-130); Glucose 106 mg/dL (65-115); Osmolality Calculated 288 mOsm/kg (285-295); Potassium 4.1 mmol/L (3.5-5.1); Sodium 138 mmol/L (136-145); Total Bilirubin 0.5 mg/dL (0.15-1.2); Total Protein 6.6 g/dL (6.6-8.7)
[2023-08-26 19:00] LABS: TPMT Activity 16
== END 2023-08-19 08:34 | disposition home or self-care (01) ==
LOC: RAD 08:39
PROVIDERS: PCP Nurse Practitioner Family; Visit Provider Internal Medicine
DX: M60.9 Myositis, unspecified (principal); R76.8 Other specified abnormal immunological findings in serum; M19.90 Unspecified osteoarthritis, unspecified site; R07.9 Chest pain, unspecified; M47.816 Spondylosis without myelopathy or radiculopathy, lumbar region; Z98.1 Arthrodesis status; Z79.899 Other long term (current) drug therapy
CPT/HCPCS: 36415; 71046; 72100; 80053; 82550; 82657; 84100; 85025

== ENCOUNTER → 2023-09-09 14:09 | Outpatient (BNVA) | payer MEDICARE, OTHER, SELFPAY | PROVIDERS: PCP Nurse Practitioner Family; Visit Provider Internal Medicine | DX: M60.9 Myositis, unspecified (principal); M19.90 Unspecified osteoarthritis, unspecified site; R76.8 Other specified abnormal immunological findings in serum | CPT/HCPCS: 99214 ==

== ENCOUNTER 2024-04-26 12:59 | Outpatient (CLI) | payer MEDICARE, OTHER, SELFPAY ==
[2024-04-26 13:49] LABS: Basophils % 0.8 %; Hematocrit 34.8 % (36-47); Lymphocytes # 1.5 10^3/uL (0.8-4.8); Mean Corpuscular HGB Conc 32.8 g/dL (30-55); Mean Corpuscular Volume 88.5 fl (85-98); Mean Platelet Volume 10.5 fL (7.4-10.4); Monocytes # 0.3 10^3/uL (0.2-0.9); Monocytes % 7.9 %; Neutrophils # 2.03 10^3/uL (1.8-7.7); Nucleated Red Blood Cells % 0 %; Platelet Count 178 10^3/cmm (157-399); Red Blood Count 3.93 10^6/uL (3.85-5.65); Red Cell Distribution Width 13.9 % (12.1-15.1)
[2024-04-26 13:58] LABS: Erythrocyte Sedimentation Rate < 1 mm/hr (0-15)
[2024-04-26 14:12] LABS: Alanine Aminotransferase 37 U/L (0-33); Alkaline Phosphatase 54 U/L (35-105); Aspartate Amino Transferase 41 U/L (0-32); Globulin 1.8 g/dL (1.3-4.6); Total Bilirubin 0.5 mg/dL (0.15-1.2); Total Protein 5.8 g/dL (6.6-8.7)
[2024-04-26 16:08] LABS: Creatine Phosphokinase 211 U/L (26-192)
== END 2024-04-26 13:00 ==
LOC: LAB 13:00
PROVIDERS: PCP Nurse Practitioner Family; Visit Provider Internal Medicine Rheumatology
DX: Z79.899 Other long term (current) drug therapy (principal); R76.8 Other specified abnormal immunological findings in serum; M79.7 Fibromyalgia; M60.9 Myositis, unspecified; M15.0 Primary generalized (osteo)arthritis; R21 Rash and other nonspecific skin eruption
CPT/HCPCS: 36415; 80076; 82085; 82550; 82565; 85025; 85651; 86140; 99214

== ENCOUNTER 2024-08-30 11:51 | Outpatient (CLI) | payer MEDICARE, OTHER, SELFPAY ==
[2024-08-30 12:48] LABS: Basophils % 0.6 %; Eosinophils # 0.2 10^3/uL (0.0-0.8); Eosinophils % 5.5 %; Lymphocytes # 1.3 10^3/uL (0.8-4.8); Lymphocytes % 36.9 %; Mean Corpuscular HGB Conc 32.9 g/dL (30-55); Mean Corpuscular Hemoglobin 32.5 pg (27-33); Mean Corpuscular Volume 98.7 fl (85-98); Mean Platelet Volume 9.3 fL (7.4-10.4); Monocytes # 0.3 10^3/uL (0.2-0.9); Monocytes % 7.5 %; Neutrophils # 1.71 10^3/uL (1.8-7.7); Neutrophils % 49.2 %; Nucleated Red Blood Cells % 0 %; Platelet Count 164 10^3/cmm (157-399); Red Blood Count 3.14 10^6/uL (3.85-5.65); Red Cell Distribution Width 17.7 % (12.1-15.1); White Blood Count 3.47 10^3/uL (3.29-11.43)
[2024-08-30 13:00] LABS: Erythrocyte Sedimentation Rate < 1 mm/hr (0-15)
[2024-08-30 13:02] LABS: Alanine Aminotransferase 14 U/L (0-33); Alkaline Phosphatase 59 U/L (35-105); Aspartate Amino Transferase 24 U/L (0-32); Creatine Phosphokinase 136 U/L (26-192); Globulin 1.8 g/dL (1.3-4.6); Total Bilirubin 0.5 mg/dL (0.15-1.2); Total Protein 5.8 g/dL (6.6-8.7)
[2024-09-01 13:14] LABS: Aldolase 2.3 U/L (< OR = 8.1)
== END 2024-08-30 11:52 | disposition home or self-care (01) ==
LOC: LAB 11:52
PROVIDERS: PCP Nurse Practitioner Family; Visit Provider Internal Medicine Rheumatology
DX: M79.10 Myalgia, unspecified site (principal); Z79.899 Other long term (current) drug therapy
CPT/HCPCS: 36415; 80076; 82085; 82550; 85025; 85651; 86140; 99214

== ENCOUNTER → 2024-11-30 10:09 | Outpatient (BNVA) | payer MEDICARE, OTHER, SELFPAY | PROVIDERS: PCP Nurse Practitioner Family; Referring Provider Nurse Practitioner Family; Visit Provider Student in an Organized Health Care Education/Training Program | DX: D50.9 Iron deficiency anemia, unspecified (principal) | CPT/HCPCS: 99204 ==

== ENCOUNTER 2024-12-19 06:42 | Day surgery (SDC) | payer MEDICARE, OTHER, SELFPAY ==
[2024-12-19 07:03] VITALS: BP 117/93; PULSE 63; RESP 18; TEMP 36.6; O2SAT 96; BMI 28.0
[2024-12-19] MEDS: sodium chloride 0.9% 1,000 ML 30 ML IV (07:19)
--- NOTE | 2024-12-19 07:59 | ANES.PREANE2 ---
Pre-Anesthetic Assessment Height/Weight: Height 1.7 m Weight 81.193 kg Temp Pulse Resp BP Pulse Ox O2 Del Method 97.8 F 63 18 117/93 96 Room Air 12/19/24 07:03 12/19/24 07:03 12/19/24 07:03 12/19/24 07:03 12/19/24 07:03 12/19/24 07:03 Operation Date: 12/19/24 08:30 Proposed Procedures p EGD 80839, 00550,G0105, D50.9(Not Applicable) - Tirso Cruz MD s Colonoscopy(Not Applicable) - Tirso Cruz MD Familial anesthetic complications: none Was Clonidine taken within 24 hours: N/A Last intake: Intake Last Liquid Date 12/18/24 Last Liquid Time 20:00 Last Solid Date 12/17/24 Last Solid Time 18:00 Social No alcohol Exam alert, oriented x 3, clear to auscultation bilaterally and regular rate & rhythm Airway Mallampati: Class II CV/HEM Hypertension Musc/skel Fibromyalgia Anesthetic Plan ASA status: 3 Anesthesia: MAC Risk of > 500 ml blood loss (7ml/kg in children): No Medications/Allergies Home Medications ?Medication ?Instructions ?Recorded ?Confirmed ?Last Taken ?Type azelastine 137 mcg (0.1 %) nasal 1 spray intranasal BID 02/08/20 12/19/24 12/14/24 History spray fluticasone 250 mcg-salmeterol 50 1 inh inhalation BID 02/08/20 12/19/24 12/14/24 History mcg/dose blistr powdr for inhalation (Advair Diskus) trazodone 150 mg tablet 150 mg PO BEDTIME 02/08/20 12/19/24 12/14/24 History pregabalin 300 mg capsule (Lyrica) 300 mg PO BID 04/26/24 12/19/24 12/19/24 04:00 History hydroxychloroquine 200 mg tablet 200 mg PO BID #180 tabs 09/12/24 12/19/24 12/19/24 04:00 Rx azathioprine 50 mg tablet (Imuran) 50 mg PO BID 12/14/24 12/19/24 12/14/24 History levocetirizine 5 mg tablet 5 mg PO DAILY 12/14/24 12/19/24 12/14/24 History meloxicam 15 mg tablet 15 mg PO DAILY 12/14/24 12/19/24 12/19/24 04:00 History metoprolol succinate 50 mg 50 mg PO BID 12/14/24 12/19/24 12/14/24 History tablet,extended release 24 hr Allergies Allergy/AdvReac Type Severity Reaction Status Date / Time adhesive tape Allergy itching Verified 12/19/24 07:02 Current Medications Generic Name Dose Route Start Last Admin Trade Name Dago PRN Reason Stop Dose Admin Sodium Chloride 1,000 mls @ 30 mls/hr 12/19/24 07:00 12/19/24 07:19 Sodium Chloride 0.9% IV 12/20/24 06:59 30 mls/hr .Q24H ADDI Administration PFSH Anesthesia Medical History Anxiety Hypertension Myositis Osteoarthritis Fibromyalgia Osteoporosis Surgical History Status post surgery (12/02/20) right thigh muscle biopsy Status post colonoscopy (12/02/20) polyps x 2 H/O total hip arthroplasty Family History Other Hypertension Denies family history of Rheumatoid arthritis Lupus CAD (coronary artery disease) Cancer Social History Smoking and tobacco/nicotine status: never used tobacco/nicotine Alcohol intake: never Substance/Drug Use: never Lives independently: Yes Marital status: Current occupational status: retired Data Anesthesia Cardiac Studies: Echocardiogram Ultrasound 12/17/20
--- NOTE | 2024-12-19 10:08 | W.PM.OPSUD ---
Surgery/Procedure H&P Update DATE OF PROCEDURE: December 19, 2024 DATE H&P PERFORMED: 11/30/24 H&P UPDATE INFORMATION: I have reviewed H&P completed within last 30 days, I have examined patient prior to procedure and No changes to prior documentation PLANNED PROCEDURE: Operation Date: 12/19/24 08:30 Proposed Procedures p EGD 43962, 43993,G0105, D50.9(Not Applicable) - Tirso Cruz MD s Colonoscopy(Not Applicable) - Tirso Cruz MD
[2024-12-19 10:30] VITALS: BP 127/66; PULSE 57; RESP 18; TEMP 36.1; O2SAT 98
[2024-12-19 10:49] VITALS: BP 119/81; PULSE 58; RESP 16; O2SAT 97
--- NOTE | 2024-12-19 11:10 | ANE.PACU2 ---
Inpatient post-anesthesia follow up: Airway intact: Yes Vital signs: Temperature 97 F Pulse Rate 58 Respiratory Rate 16 Blood Pressure 119/81 Pulse Oximetry 97 Oxygen Delivery Me thod Room Air Oxygen Flow Rate Fraction of Inspir ed Oxygen Hydration adequate: Yes Nausea and vomiting: No Pain level: 1 Mental status: Baseline
== END 2024-12-19 11:10 | disposition home or self-care (01) ==
PROVIDERS: PCP Nurse Practitioner Family; Visit Provider Student in an Organized Health Care Education/Training Program
PROC: 0DJ08ZZ Inspection of Upper Intestinal Tract, Via Natural or Artificial Opening Endoscopic (ICD-10-PCS; principal; 2024-12-19 08:30)
PROC: 0DJD8ZZ Inspection of Lower Intestinal Tract, Via Natural or Artificial Opening Endoscopic (ICD-10-PCS; CPT 45378; 2024-12-19 08:30)
DX: D50.9 Iron deficiency anemia, unspecified (principal); I10 Essential (primary) hypertension; Z79.899 Other long term (current) drug therapy; K29.50 Unspecified chronic gastritis without bleeding; Z79.82 Long term (current) use of aspirin; Z91.09 Other allergy status, other than to drugs and biological substances; Z86.0100 Personal history of colon polyps, unspecified
CPT/HCPCS: 43239; 45378; 88305; J2704; J7030

== ENCOUNTER → 2025-01-11 09:08 | Outpatient (BNVA) | payer MEDICARE, OTHER, SELFPAY | PROVIDERS: PCP Nurse Practitioner Family; Visit Provider Student in an Organized Health Care Education/Training Program | DX: Z09 Encounter for follow-up examination after completed treatment for conditions other than malignant neoplasm (principal) | CPT/HCPCS: 99213 ==

== ENCOUNTER → 2025-04-05 08:40 | Outpatient (BNVA) | payer MEDICARE, OTHER, SELFPAY | PROVIDERS: PCP Nurse Practitioner Family; Visit Provider Internal Medicine Rheumatology | DX: M60.9 Myositis, unspecified (principal); M15.0 Primary generalized (osteo)arthritis; R76.8 Other specified abnormal immunological findings in serum; R21 Rash and other nonspecific skin eruption | CPT/HCPCS: 99214 ==

== ENCOUNTER 2025-07-23 09:40 | Outpatient (CLI) | payer MEDICARE, OTHER, SELFPAY ==
[2025-07-23 10:12] LABS: Hematocrit 32.2 % (36-47); Hemoglobin 10.50 g/dL (11.27-16.99); Mean Corpuscular HGB Conc 32.6 g/dL (30-55); Mean Corpuscular Hemoglobin 32.4 pg (27-33); Mean Corpuscular Volume 99.4 fl (85-98); Nucleated Red Blood Cells % 0 %; Platelet Count 154 10^3/cmm (157-399); Red Blood Count 3.24 10^6/uL (3.85-5.65); White Blood Count 3.33 10^3/uL (3.29-11.43)
[2025-07-23 10:38] LABS: Alanine Aminotransferase 13 U/L (0-33); Albumin Level 4.2 g/dL (3.5-5.2); Alkaline Phosphatase 76 U/L (35-105); Aspartate Amino Transferase 28 U/L (0-32); Globulin 1.9 g/dL (1.3-4.6); Total Protein 6.1 g/dL (6.6-8.7)
[2025-07-23 10:54] LABS: Hepatitis B Surface Antigen Non-Reactive (Nonreactive)
== END 2025-07-23 09:41 | disposition home or self-care (01) ==
LOC: LAB 09:41
PROVIDERS: PCP Nurse Practitioner Family; Visit Provider Internal Medicine Rheumatology
DX: Z79.899 Other long term (current) drug therapy (principal); M79.7 Fibromyalgia
CPT/HCPCS: 36415; 80076; 82085; 82306; 82550; 82565; 85025; 85651; 86140; 86480; 86704; 86803; 87340